=== PATIENT | female | born 1965 | race Caucasian/White ===

== ENCOUNTER → 2017-03-02 | Outpatient (CLI) | payer MEDICAID | LOC: BRMIMAGING 09:18 | PROVIDERS: ATTEND Family Medicine | DX: M51.37 Other intervertebral disc degeneration, lumbosacral region (principal); M46.96 Unspecified inflammatory spondylopathy, lumbar region | CPT/HCPCS: 72080-PO ==

== ENCOUNTER → 2017-03-27 | Outpatient (CLI) | payer MEDICAID | LOC: BRMIMAGING 11:35 | PROVIDERS: ATTEND Registered Nurse | DX: Z12.31 Encounter for screening mammogram for malignant neoplasm of breast (principal) | CPT/HCPCS: G0202 ==

== ENCOUNTER 2017-06-11 12:08 | Day surgery (SDC) | payer MEDICAID ==
[2017-06-11] MEDS ORDERED: MIDAZOLAM 2 MG/2 ML VIAL IVP PRN (12:31)
[2017-06-11] MEDS ORDERED: NALOXONE HCL 0.4 MG/ML INJ IVP PRN (12:31)
[2017-06-11] MEDS ORDERED: fentaNYL 100 MCG/2 ML INJ IVP PRN (12:31)
[2017-06-11] MEDS ORDERED: MEPERIDINE 25 MG/ML SYR IVP PRN (12:31)
[2017-06-11] MEDS ORDERED: FLUMAZENIL 0.5 MG/5 ML MDV IVP PRN (12:31)
[2017-06-11] MEDS ORDERED: NALOXONE HCL 0.4 MG/ML INJ ONE (12:35)
[2017-06-11] MEDS ORDERED: FLUMAZENIL 0.5 MG/5 ML MDV IVP ONE (12:35)
[2017-06-11] MEDS ORDERED: fentaNYL 100 MCG/2 ML INJ ONE (12:36)
[2017-06-11] MEDS ORDERED: MIDAZOLAM 2 MG/2 ML VIAL ONE (12:36)
[2017-06-11] MEDS ORDERED: NS 1,000 ML IV SCH (12:45)
[2017-06-11 13:23] VITALS: PULSE 86; RESP 16; TEMP 98.2
[2017-06-11] MEDS ORDERED: ONDANSETRON 4 MG/2 ML VIAL ONE (13:30)
[2017-06-11] MEDS ORDERED: ONDANSETRON 4 MG/2 ML VIAL IVP ONE (14:15)
--- NOTE | 2017-06-11 14:51 | PDGENHP ---
History & Physical History of Present Illness: FELL. LBP SINCE. RT LEG PAIN RADIATING TO KNEE. Pertinent Past, Social, Family History: MICRODISCECTOMY, C/S FUSION, BREAST REDUCTION, SINUS SURGERY. Relevant Physical Exam: 2-3 TO 8/10 PAIN. RT LBP RADIATING TO LATERAL THIGH. Cardiorespiratory Assessment: RRR.CTA
--- NOTE | 2017-06-11 14:51 | PDPROPOC ---
Sedation Plan of Care Sedation Plan of Care: vital signs stable, mental status noted, patient educated of risks, benefits, alternatives, patient can tolerate sedation ASA Classification: ASA 3 Planned drugs: fentanyl, midazolam Mallampati Score: Class 3 Mallampati Reference Image: Patient passed 3-3-2 rule?: Yes
[2017-06-11 15:39] VITALS: BP 131/84; O2SAT 99
[2017-06-11] MEDS ORDERED: LIDOCAINE 1% 300 MG/30 ML SDV ONE (15:44)
[2017-06-11] MEDS ORDERED: TRIAMCINOLONE ACETONIDE 200 MG/5 ML MDV IM ONE (16:38)
== END 2017-06-11 17:16 | disposition home or self-care (01) ==
LOC: FIMAGING 12:08
PROVIDERS: ATTEND Physician Assistant
DX: M54.16 Radiculopathy, lumbar region (principal)
CPT/HCPCS: J2250; J2310; J2405; J3010; J3301

== ENCOUNTER → 2017-11-22 | Outpatient (CLI) | payer MEDICAID | LOC: BRMIMAGING 09:41 | PROVIDERS: ATTEND Registered Nurse | DX: M25.532 Pain in left wrist (principal) | CPT/HCPCS: 73110-PO ==